=== PATIENT | male | born 1970 | race Caucasian/White ===

== ENCOUNTER 2018-11-17 17:49 | Emergency (ER) | payer OTHER ==
[~2018-11-17] VITALS: Ht 182.9 cm; Wt 99.8 kg
[2018-11-17] MEDS ORDERED: LISINOPRIL10 MG (18:08)
== END 2018-11-17 20:02 | disposition home or self-care (01) ==
LOC: ER 17:49
DX: T15.11XA Foreign body in conjunctival sac, right eye, initial encounter (principal)

== ENCOUNTER 2023-09-14 09:34 | Outpatient (CLI) | payer OTHER ==
[~2023-09-14 09:34] MED LIST: LISINOPRIL10 MG
== END 2023-09-14 09:47 | disposition home or self-care (01) ==
LOC: MRI 09:34
PROVIDERS: ATTEND Physical Medicine & Rehabilitation Sports Medicine
DX: S83.206A Unspecified tear of unspecified meniscus, current injury, right knee, initial encounter (principal); M25.561 Pain in right knee; M25.361 Other instability, right knee; R26.9 Unspecified abnormalities of gait and mobility; R60.0 Localized edema
CPT/HCPCS: 73718

== ENCOUNTER 2024-08-03 08:59 | Outpatient (CLI) | payer OTHER | END 2024-08-03 09:24 | disposition home or self-care (01) | LOC: MRI 08:59 | PROVIDERS: ATTEND Specialist | DX: M51.9 Unspecified thoracic, thoracolumbar and lumbosacral intervertebral disc disorder (principal) | CPT/HCPCS: 70551 ==

== ENCOUNTER 2025-05-06 17:00 | Emergency (ER) | payer OTHER ==
[~2025-05-06] VITALS: Ht 188 cm; Wt 104.3 kg
[2025-05-06] MEDS ORDERED: ACETAMINOPHEN 500 MG GEL..CAP PO ONE ×2 (18:15→20:04)
[2025-05-06] MEDS ORDERED: IPRATROPIUM/ALBUTEROL SULFATE 3 ML AMPUL.NEB IH SCH (18:15)
[2025-05-06] MEDS ORDERED: METHYLPREDNISOLONE SOD SUCC 125 MG VIAL IV ONE (18:15)
[2025-05-06] MEDS ORDERED: GUAIFEN/DEXTROMETHORPHAN/PE 10 ML BLIST.PACK PO ONE ×2 (18:30→20:04)
[2025-05-06] MEDS ORDERED: IPRATROPIUM/ALBUTEROL SULFATE 3 ML AMPUL.NEB IH ONE (18:31)
[2025-05-06] MEDS ORDERED: METHYLPREDNISOLONE SOD SUCC 125 MG VIAL ONE (20:05)
[2025-05-06 21:40] LABS: BASO % 0.3 % (0.1-1.2); EOS # 0.27 (0.04-0.54); EOS % 4.6 % (0.7-7.0); LYMPH # 2.13 (1.18-3.74); LYMPH % 36.7 % (19.3-53.1); MEAN PLATELET VOLUME 8.90 fl (9.4-12.4); MONO # 0.57 (0.24-0.82); MONO % 9.8 % (4.7-12.5); NEUT # 2.81 (1.56-6.13); NEUT % 48.4 % (34.0-71.1); RED CELL DISTRIBUTION WIDTH 12.0 % (11.6-14.4)
[2025-05-06] MEDS ORDERED: GUAIFENESIN/DEXTROMETHORPHAN 100MG/10ML BLIST.PACK PO ONE (21:45)
[2025-05-06 21:53] LABS: COVID-19 AG NEGATIVE (NEGATIVE)
[2025-05-06 22:00] LABS: ALT/SGPT 42.0 U/L (12-78); AST/SGOT 24.0 U/L (15-37); BILIRUBIN TOTAL 0.39 mg/dL (0.3-1.2); BUN CREA RATIO 16.0 (7.0-25.0); CREATININE SERUM 1.16 mg/dL (0.70-1.30); GFR 66.11; GLOBULINA 3.6 G/DL (2.4-3.5); GLUCOSE FASTING 100.0 mg/dL (65-100); OSMOLALITY SERUM 285.0 MOSM/KG (275-295)
[2025-05-06] MEDS ORDERED: MEDROLPACK PO (23:08)
[2025-05-06] MEDS ORDERED: IPRAT-ALBUT 0.5-3 ML IH (23:08)
[2025-05-06] MEDS ORDERED: SINGULAIR10 MG PO (23:08)
[2025-05-06] MEDS ORDERED: ZITHROMAX500 MG PO (23:08)
== END 2025-05-06 23:19 | disposition home or self-care (01) ==
LOC: ER 17:01
PROVIDERS: General Practice
DX: B34.9 Viral infection, unspecified (principal); Z20.822 Contact with and (suspected) exposure to COVID-19